=== PATIENT | male | born 1950 | race Hispanic/Latino ===

== ENCOUNTER 2016-06-01 07:11 | Emergency (ER) | payer OTHER ==
[~2016-06-01] VITALS: Ht 175.3 cm; Wt 75.5 kg
[~2016-06-01 07:11] MED LIST: no historical meds
[2016-06-01 07:16] VITALS: BP 163/97; PULSE 72; RESP 15; O2SAT 96
--- NOTE | 2016-06-01 07:23 | ED.REPORT ---
HPI-Trauma Minor / Fall Date of Service Jun 01, 2016 ED Provider: The patient is a 65 year old otherwise healthy male who presents to the emergency department after he had a ground level fall at work that occurred just prior to arrival. The patient states he was walking when he slipped on ice and fell backwards. He thinks he briefly lost consciousness. He complains of neck pain, mild head pain, and bilateral upper extremity numbness. He denies back pain, abdominal pain, chest pain, or focal weakness. Nursing Notes Stated Complaint: FALL AT WORK/HIT HEAD Chief Complaint: Multiple Trauma/Fall Nursing Notes Reviewed: Yes Allergies: Coded Allergies: No Known Allergies (Unverified Allergy, Unknown, 03/06/14) Scheduled Prednisone (PredniSONE) 10 Mg Tablet 10 MG PO DAILY 40 mg daily for 4 days, then 20 mg daily for 4 days, then 10 mg daily for 4 days Miscellaneous Medications ([no historical meds]) General Time Seen by MD: 07:23 Chief Complaint Fall, Head injury Hx Obtained From: Patient, Equipment Man Arrived By: Walk-in Onset Occurred: 1 - 4 hours ago Symptom Duration: Since onset Caused by: Fall on ground Context: Occurred at: Workplace Location: Head Neck Quality: Painful Severity: Current: Mild Severity: Maximum: Moderate Recent Healthcare: No recent doctor visit, No recent hospitalization Similar Sx Previous: No Past Medical History Past Medical History Notes: Patient does not take any daily medications. Past Medical History None Past Surgical History Hernia surgery Family History Noncontributory Smoking History Former Smoker Social History Alcohol Use: Denies alcohol use Drug Use: Denies drug use Other Social History: Good social support, , Local resident Occupation Patient does a lot of heavy lifting at work. Ambulatory Status Independent Review of Systems Musculoskeletal: Reports: Neck pain, Denies: Back pain Neurologic: Reports: Change LOC, Headache, Numbness, Denies: Focal weakness, Weakness Complete sys rev & neg: except as marked. Cardiovascular: Denies: Chest pain GI: Denies: Abdominal pain Physical Exam Initial Vital Signs Vital Signs (First) Date Time Temp Pulse Resp B/P Pulse Ox O2 Delivery O2 Flow Rate FiO2 06/01/16 07:16 36.8 72 15 163/97 96 Room Air Initial VS: Reviewed Extremities: No swelling Skin: Warm, Dry, No cyanosis Psychiatric: Mood/affect normal, Behavior normal, Normal thought content General/Constitutional: Awake, Alert, No acute distress, Cooperative Head / Eyes: Normocephalic, PERRL, EOMI 3 cm occipital hematoma without active bleeding or abrasion. ENT: Atraumatic, Airway patent, Mucous membranes moist Respiratory / Chest: Atraumatic, Breath sounds NL, Breath sounds = bilat, No respiratory distress, No rales, No rhonchi, No wheezing, No chest tenderness, No chest wall deformity, No crepitus Cardiovascular: Heart rate NL, Regular rhythm, Heart sounds NL, No murmurs, No rubs, Cap refill not delayed, Peripheral circulation NL Abdomen: Atraumatic, Soft, Non-tender, No guarding, No rebound, No distention Back: No midline vertebral tend Upper Extremity / MS: No deformity Lower Extremity / Pelvis / MS: No deformity, Neurologic intact, Vascular intact Neurologic: Oriented X3, Speech NL Paraesthesia in the upper extremities, symmetrically from the deltoid down the arms. It seems like it spares the lower extremities. His forehead and chin are intact. Equal strength bilterally to lower extremities. Sensation normal to lower extremities. Interpretation & Diagnostics MRI CERVICAL SPINE WITHOUT CONTRAST IMPRESSION: 1. No acute wedge compression deformities. 2. No edema within the paraspinous soft tissues to suggest ligamentous injury. 3. Disc desiccation and height loss most severe in the upper cervical spine with resultant mild canal stenosis at C4-5. 4. Severe right C4-5 foraminal narrowing and moderate to severe bilateral C5-6 foraminal narrowing. Dictated by: Jennifer Domingo M.D. on 06/01/2016 at 10:13 Lab Results Interpretation Test 06/01/16 07:35 Hold Purple Top Tube Received (Received) Hold Blue Top Tube Received (Received) Hold [place] Top Tube Received (Received) CT Head Interpretation IMPRESSION: No acute intracranial disease process. Dictated by: Kanchan Costa MD, PhD on 06/01/2016 at 8:16 Study: Head CT no contrast Interpretation / Wet Read by: Interpret - Radiologist CT C-Spine Interpretation IMPRESSION: No fracture. No acute osseous lesion. If symptoms and/or clinical suspicion for pathology persists, evaluation with MRI may be helpful for further assessment. Dictated by: Kanchan Costa MD, PhD on 06/01/2016 at 8:18 Study type: CT no contrast Interpretation / Wet Read by: Interpret - Radiologist Re-Eval/Medical Decision Med Decision/Clinical Course Patient presents after a mechanical ground-level fall. Head and C-spine CAT scans were obtained and unremarkable. The patient on clinical exam had paresthesia and mild weakness of the upper extremities and for this reason a MRI was obtained. There is no central cord lesion however he does have foraminal stenosis which may be attributable to his symptoms. Neurosurgery is consulted and agrees with close follow-up in the clinic. Patient will be discharged on a steroid taper. Return and follow-up precautions given. Source of Hx: Old records Re-Evaluation/Progress : Time of Eval: 11:28 Re-Evaluation/Progress Note: Discussed imaging results with the patient and family. Will discharge with outpatient followup. All questions were addressed. Consultation : Referral / Consult Name: Hakan Villafuerte MD Consulted With: Neurosurgery Call Returned at: 10:59 Food Cashier: Agrees with eval, Agrees with plan Note: Recommends starting the patient on steroids and will see him in clinic. Counseled Regarding: Diagnosis, Need for follow-up, When/why to return to ED Discharge & Departure Impression: Primary Impression: Fall Encounter type: initial encounter Qualified Code: W19.XXXA - Unspecified fall, initial encounter Additional Impressions: Scalp hematoma Encounter type: initial encounter Qualified Code: S00.03XA - Contusion of scalp, initial encounter Paresthesia of upper extremity Disposition: Home Discharge Condition All VS Reviewed: Yes Condition: Stable Additional Instructions: Thank you for entrusting us with your care today. Your head CT today is reassuring. Your neck CT and MRI so not show any evidence of acute fractures, however you do have some compression of your nerves in your neck. You should however still followup with a document design specialist. We have given you a referral to Dr. Villafuerte. Call his office today to schedule a close followup appointment. Take the steroids as prescribed. You can ice the painful areas if this helps. Please return to the emergency department if you develop focal weakness, new or worsening numbness, headache, vision changes, vomiting, or any other new or concerning symptoms. [place] por peraza confianza en la atencion de sofie que nosotros le hemos proveido. La Tomografia cromatografica que le sacamos de la jonas no indico que hubiera ningun problema. La tomografia cromatografica del [place] y la imagen de resonancia magnetica no indicaron que tuviera ninguna fractura aguda, sin embargo se pudo observar compresion en los nervios del [place].De cualquier manera, pase a say a un medico especialista de la columna para que le de samara consulta de seguimiento. Se le recomendo tambien con el Dr. Villafuerte. llame a peraza consultorio hoy para hacer samara jose de seguimiento detallada. Tomese los esteroides daisy y lisset se le recetaron. Puede colocarse compresas con hielo en la ivan donde le duela si siente que esto le ayuda. Por favor regrese a la zulema de emergencias si siente debilidad en samara cierta ivan o si siente que el entumecimiento va en aumento, si tiene dolor de jonas, cambios de la vista, vomito o cualquier otro sintoma que le preocupe. Referrals: Hakan Villafuerte MD [facility] Scribe Attestation Portions of this note were transcribed by Flavia Anderson. I, Dr. Rojas personally performed the history, physical exam and medical decision-making; I reviewed and confirmed the accuracy of the information in the transcribed note. Signed by: Torsten Elizabeth, 06/01/2016 and 1130. Wes Rojas DO Jun 01, 2016 07:23 Flavia Anderson Jun 01, 2016 07:30
[2016-06-01 07:27] VITALS: BP 163/97; PULSE 72; RESP 15; O2SAT 96
--- NOTE | 2016-06-01 08:19 | DRSVH ---
PROCEDURE: CT BRAIN WITHOUT CONTRAST ([id number]) INDICATIONS: fall, head injury TECHNIQUE: Noncontrast 4.5 mm thick angled axial sections acquired from the foramen magnum to the vertex, with c oronal reformats. COMPARISON: None. FINDINGS: Image quality: Excellent. CSF spaces: Basal cisterns are patent. No extra-axial fluid collections. The ventricles are symmet dante in size and shape. Brain: No intracranial bleeds or masses. There is cerebral volume loss for age, with resultant vent ricular and sulcal prominence. There are periventricular and deep white matter chronic small vessel ischemic changes. There is intracranial internal carotid artery atherosclerosis. Skull and face: Calvarium and visualized facial bones appear intact, without suspicious lesions. Pat ient is status post bilateral scleral banding. Small occipital scalp hematoma is noted. Sinuses: Visualized sinuses and mastoids are clear. IMPRESSION: No acute intracranial disease process. Dictated by: Kanchan Costa MD, PhD on 06/01/2016 at 8:16 Approved by: Kanchan Costa MD, PhD on 06/01/2016 at 8:18
--- NOTE | 2016-06-01 08:25 | DRSVH ---
PROCEDURE: CT CERVICAL SPINE WITHOUT CONTRAST ([id number]) INDICATIONS: fall, head injury TECHNIQUE: Noncontrast 3 mm thick sections acquired from the skull base to the T4 level. Sagittal and coronal r eformats were then constructed. For radiation dose reduction, the following was used: automated exp osure control, adjustment of mA and/or kV according to patient size. COMPARISON: None. FINDINGS: Image quality: Excellent. Bones: No fractures or dislocations. Visualized superior ribs are intact. Multilevel degenerative d isc disease and facet arthropathy are noted. Soft tissues: Prevertebral soft tissues are normal in thickness. No paravertebral hematomas. No ap ical pneumothoraces. IMPRESSION: No fracture. No acute osseous lesion. If symptoms and/or clinical suspicion for patholog y persists, evaluation with MRI may be helpful for further assessment. Dictated by: Kanchan Costa MD, PhD on 06/01/2016 at 8:18 Approved by: Kanchan Costa MD, PhD on 06/01/2016 at 8:24
[2016-06-01 09:48] VITALS: BP 136/84; PULSE 69; RESP 16; O2SAT 94
--- NOTE | 2016-06-01 10:24 | DRSVH ---
PROCEDURE: MRI CERVICAL SPINE WITHOUT CONTRAST ([id number]) INDICATIONS: fall, neck pain, numbness to B upper ext TECHNIQUE: Noncontrast sagittal T1 spin echo and T2 fast spin echo, sagittal STIR, foraminal oblique sagittal T2 fast spin echo, and axial gradient echo or T2 fast spin echo through the cervical spine. COMPARISON: None. FINDINGS: Image quality: Excellent. Alignment and Curvature: There is normal bony alignment. Bone Marrow: Marrow demonstrates normal overall signal. Spinal Cord: Visualized spinal cord has normal size and signal. No cerebellar tonsillar herniation. Paraspinous Soft Tissues: No paravertebral masses. Prevertebral soft tissues are normal in thicknes s. C2-C3: Normal appearance. C3-C4: Moderate disc desiccation and height loss. Broad-based disc bulge. No canal stenosis. No himanshu inal stenosis. C4-C5: Mild disc desiccation and height loss. Broad-based disc bulge. Mild canal stenosis. Severe rig ht neuroforaminal narrowing. Mild left neuroforaminal stenosis. C5-C6: Mild disc desiccation. No canal stenosis. Moderate to severe bilateral foraminal narrowing. C6-C7: Normal appearance. C7-T1: Normal appearance. IMPRESSION: 1. No acute wedge compression deformities. 2. No edema within the paraspinous soft tissues to suggest ligamentous injury. 3. Disc desiccation and height loss most severe in the upper cervical spine with resultant mild canal stenosis at C4-5. 4. Severe right C4-5 foraminal narrowing and moderate to severe bilateral C5-6 foraminal narrowing. Dictated by: Jennifer Domingo M.D. on 06/01/2016 at 10:13 Approved by: Jennifer Domingo M.D. on 06/01/2016 at 10:23
[2016-06-01] MEDS ORDERED: PRE10 PO (11:14)
[2016-06-01 11:53] VITALS: BP 136/84; PULSE 69; RESP 16; O2SAT 94
== END 2016-06-01 11:54 | disposition home or self-care (01) ==
LOC: SED 07:11
DX: S00.03XA Contusion of scalp, initial encounter (principal); R20.2 Paresthesia of skin; W01.198A Fall on same level from slipping, tripping and stumbling with subsequent striking against other object, initial encounter; Y93.89 Activity, other specified; Y92.59 Other trade areas as the place of occurrence of the external cause; Y99.0 Civilian activity done for income or pay; Z87.891 Personal history of nicotine dependence